=== PATIENT | female | born 1955 | race Caucasian/White ===

== ENCOUNTER 2017-09-11 07:55 | Emergency (ER) | payer BC ==
[~2017-09-11] VITALS: Ht 162.6 cm; Wt 61.2 kg
[2017-09-11] MEDS ORDERED: LIPITOR40 MG ORAL (08:05)
[2017-09-11] MEDS ORDERED: TRAMADOL HCL50 MG ORAL (08:05)
[2017-09-11] MEDS ORDERED: SOMA350 MG PO (08:05)
[2017-09-11] MEDS ORDERED: LYRICA75 M1 ORAL (08:05)
[2017-09-11] MEDS ORDERED: Norco 5mg/325mg tab PO ONE (08:15)
--- NOTE | 2017-09-11 09:11 | Diagnostic Imaging Report ---
Indication: left ankle pain Comparison: None Findings: 3 views of the left ankle obtained. There is an acute fracture of the posterior malleolus of the tibia. This is in the area of the syndesmosis. Soft tissue swelling is noted. There is no malalignment. Marginal spurs noted in the anterior part of the tibiotalar joint, plantar calcaneus and suggestion of mild osteophytes in the dorsal midfoot as well. IMPRESSION: Acute posterior malleolar fracture.
[2017-09-11 09:35] VITALS: BP 160/70
--- NOTE | 2017-09-11 09:42 | Diagnostic Imaging Report ---
Indication: Ankle fracture Comparison: None Findings: Two views of the left tibia and fibula were obtained. There is an acute oblique fracture of the proximal fibula head/neck. A posterior malleolar ankle fracture is again noted and extends medially, probably involving the distal tibiofibular syndesmosis (likely, in light of the proximal fibular fracture). The medial malleolus appears intact and the relationship to talus remains normal. IMPRESSION: Maisonneuve injury
[2017-09-11] MEDS ORDERED: IBUPROFEN600 MG ORAL (09:55)
[2017-09-11] MEDS ORDERED: PERCOCET 5-3251 EACH ORAL (09:55)
[2017-09-11 10:31] VITALS: BP 160/70
--- NOTE | 2017-09-11 10:45 | Diagnostic Imaging Report ---
Indication: Pain Comparison: None Findings: 3 views of the left foot were obtained. No fracture of the foot identified. Ankle fracture again noted. No malalignment identified within the foot. IMPRESSION: No acute fracture of the foot identified
--- NOTE | 2017-09-11 11:18 | Emergency Room Report ---
History of Present Illness General Chief Complaint: Lower Extremity Injury Source: Patient Present Illness HPI 62-year-old female presents ED for evaluation. Patient states she twisted her foot at the gym today. Notes pain in her left foot and ankle. Denies any her head or LOC. Pain is sharp, 10 out of 10, nonradiating. Unable to bear weight. Denies any other injuries. No other aggravating relieving factors. Denies any other associated symptoms Allergies: Coded Allergies: No Known Allergies (Unverified , 09/11/17) Patient History Past Medical History: none Past Surgical History: none Pertinent Family History: none Social History: Denies: smoking, alcohol use, drug use Now: No Immunizations: UTD Reviewed Nursing Documentation: PMH: Agreed, PSxH: Agreed Nursing Documentation-PMH Past Medical History: No History, Except For Review of Systems All Other Systems: negative except mentioned in HPI Physical Exam Vital Signs Date Time Temp Pulse Resp B/P (MAP) Pulse Ox O2 Delivery O2 Flow Rate FiO2 09/11/17 08:01 97.9 78 18 180/88 99 Room Air 97.9 Sp02 EP Interpretation: reviewed, normal General Appearance: alert, GCS 15, non-toxic, mild distress Head: normocephalic Eyes: bilateral eye normal inspection, bilateral eye PERRL ENT: normal ENT inspection Neck: normal inspection Respiratory: normal inspection Cardiovascular #1: normal inspection Gastrointestinal: normal inspection Rectal: deferred Genitourinary: no CVA tenderness Musculoskeletal: tender - L ankle Neurologic: alert, oriented x3, responsive, motor strength/tone normal, sensory intact, speech normal Psychiatric: normal inspection Skin: normal inspection Lymphatic: normal inspection Procedures Splinting Splinting : Consent: Verbal Hand-Made Type: plaster Splint: poserior short Pre-Proc Neuro Vasc Exam: normal Post-Proc Neuro Vasc Exam: normal Patient Tolerated: Well Complications: None Medical Decision Making Diagnostic Impression: Primary Impression: Maisonneuve fracture of left lower extremity Qualified Codes: S82.865A - Nondisplaced Maisonneuve's fracture of left leg, initial encounter for closed fracture ER Course Hospital Course 62-year-old F presents to ED complaining of L ankle pain s/p trip and fall Differential diagnoses include: Fracture, dislocation, sprain, contusion Clinical course Patient placed on stretcher. After initial history and physical, I ordered pain medications and Xrays of L ankle, L foot, L tibfib X-ray shows his proximal spiral fracture of fibula, distal posterior malleolar fracture tibia. Consistent with Leighanntiffuvallegra Fx discussed findings with orthopedist Dr. Álvarez. Ankle mortise is intact therfore stable. Patient splinted and can be seen as outpatient in orthopedic clinic. I will provide referral Discussed findings with patient. Patient placed in posterior splint. Given crutches. On reassessment pain is improved Diagnosis - maisonneuve fx Stable and discharged to home with prescription for Motrin, percocet apply ice , keep elevated. weight bear as tolerated. Followup with PMD/ortho. Return to ED if symptoms recur or worsen Other X-Ray Diagnostic Results Other X-Ray Diagnostic Results #1: X-Ray ordered: L fooot # of Views/Limited Vs Complete: 3 View Indication: Pain EP Interpretation: Yes Interpretation: no dislocation, no fractures Impression: No acute disease Electronically Signed by: Electronically signed by Henry Vides MD Other X-Ray Diagnostic Results #2: X-Ray ordered: L ankle # of Views/Limited Vs Complete: 3 View Indication: Pain EP Interpretation: Yes Interpretation: no dislocation, other - posterior distal tiba fx Impression: Other - posterior malleolar fx Electronically Signed by: Electronically signed by Henry Vides MD Other X-Ray Diagnostic Results #3: X-Ray ordered: L tibfib # of Views/Limited Vs Complete: 2 View Indication: Pain EP Interpretation: Yes Interpretation: no dislocation, no soft tissue swelling, other - spiral fx proximal fibula Impression: Other - fibula fx Electronically Signed by: Electronically signed by Henry Vides MD Last Vital Signs Date Time Temp Pulse Resp B/P (MAP) Pulse Ox O2 Delivery O2 Flow Rate FiO2 09/11/17 10:31 97.1 64 14 160/70 99 Room Air Status: improved Disposition: HOME, SELF-CARE Condition: Stable Scripts Oxycodone/Acetaminophen 5-325* (PERCOCET 5-325 MG TABLET*) 1 Each Tablet 1 TAB ORAL Q6H Y for For Pain, #20 TAB Prov: HENRY VIDES M.D. 09/11/17 Ibuprofen* (MOTRIN*) 600 Mg Tablet 600 MG ORAL Q8H Y for For Pain, #30 TAB 0 Refills Prov: HENRY VIDES M.D. 09/11/17 Referrals: OWEN [facility]LVAREZ [facility]/,REFERRING (PCP) Patient Instructions: Ankle Fracture, [id number] HENRY VIDES M.D. Sep 11, 2017 11:18
== END 2017-09-11 10:30 | disposition home or self-care (01) ==
LOC: EMR 08:23
DX: S82.865A Nondisplaced Maisonneuve's fracture of left leg, initial encounter for closed fracture (principal); X50.1XXA Overexertion from prolonged static or awkward postures, initial encounter; Y93.9 Activity, unspecified; Y92.39 Other specified sports and athletic area as the place of occurrence of the external cause
CPT/HCPCS: 29515; 99284